=== PATIENT | male | born 1965 | race Caucasian/White ===

== ENCOUNTER 2021-09-30 09:44 | Emergency (ER) | payer SELFPAY ==
--- NOTE | 2021-09-30 10:19 | EDM.PDOC ---
ED HPI GENERAL MEDICAL PROBLEM - General Chief Complaint: Respiratory Problem Stated Complaint: POSSIBLE PNEUMONIA Time Seen by Provider: 09/30/21 09:55 Source of Information: Reports: Patient History Limitations: Reports: No Limitations - History of Present Illness INITIAL COMMENTS - FREE TEXT/NARRATIVE: This 55 yo male patient reports to the ED due to difficulties breathing. The patient reports he has had increased shortness of breath for the past 5 days. The patient reports his symptoms are better today then in the past 5 days. The patient reports he had COVID sometime in the fall. The patient reports he has not been seen by his primary care facility. The patient was getting frustrated due to having multiple questions regarding his history. The patient then reported he was seen here in our hospital. The patient got up and left prior to any additional assessment. A call was placed to our registration office (that created a new account for this patient). Further looking into the patient's name, an additional record was found. Unfortunately, the patient had left prior to this information being located. Onset Date: 09/25/21 Duration: Constant Location: Reports: Chest Quality: Reports: Other Severity: Moderate Improves with: Reports: None Worsens with: Reports: None Context: Reports: Other Associated Symptoms: Reports: Cough, Shortness of Breath ED ROS GENERAL - Review of Systems Review Of Systems: Unable To Obtain Reason Not Obtained: The patient left prior to any further evaluation possible. ED EXAM, GENERAL - Physical Exam Exam: Not Obtained Reason Not Obtained: The patient left prior to any further assessment. Course - Orders/Labs/Meds Orders: Active Orders 24 hr Category Date Time Status COVID-19/FLU A+B [[facility]] Urgent Lab 09/30/21 09:48 Received Departure - Departure Time of Disposition: 10:20 Disposition: Against Medical Advice 07 Condition: Undetermined Clinical Impression: Left against medical advice - Discharge Information Care Plan Goals: The patient left due to frustration surrounding the patient being registered under a new account without locating his previous account. - My Orders Last 24 Hours: My Active Orders 09/30/21 09:48 COVID-19/FLU A+B [[facility]] Urgent - Assessment/Plan Last 24 Hours: My Active Orders 09/30/21 09:48 COVID-19/FLU A+B [[facility]] Urgent
[2021-09-30 10:43] LABS: CORONAVIRUS COVID-19 NAA NEGATIVE (NEGATIVE)
== END 2021-09-30 10:25 | disposition left against medical advice (07) ==
LOC: DL.ED 09:44
DX: R06.02 Shortness of breath (principal); R05.9 Cough, unspecified; Z20.822 Contact with and (suspected) exposure to COVID-19
CPT/HCPCS: 0240U